=== PATIENT | female | born 1985 | race Caucasian/White ===

== ENCOUNTER 2016-08-03 16:21 | Emergency (ER) | payer BC ==
[2016-08-03] MEDS ORDERED: LIDOCAINE 1% 2 ML VIAL ONE (16:44)
[2016-08-03 16:54] VITALS: BP 116/75
--- NOTE | 2016-08-03 17:01 | ED Physician Documentation ---
PD HPI UPPER EXT INJURY - Stated complaint Stated Complaint: RT FINGER LAC - Chief complaint Chief Complaint: Laceration - History obtained from History obtained from: Patient - History of Present Illness Location: Right, Finger (5th finger) Type of injury: Laceration Where injury occurred: Home Timing - onset: Today Timing - duration: Minutes Timing - details: Abrupt onset, Still present Improved by: Rest, Immobilization Worsened by: Moving, Palpating Associated symptoms: No: Weakness, Numbness, Tingling, Swelling Similar symptoms before: Has not had sx before Recently seen: Not recently seen - Additonal information Additional information: 30 y/o female was moving items in the storage shed and cut her hand on a knife that was inside a box. Review of Systems Constitutional: denies: Fever Respiratory: denies: Cough GI: denies: Vomiting Skin: reports: Laceration (s). denies: Rash Musculoskeletal: denies: Neck pain, Back pain, Extremity pain Neurologic: denies: Generalized weakness, Focal weakness, Numbness PD PAST MEDICAL HISTORY - Present Medications Home Medications: Ambulatory Orders Medication Instructions Recorded Confirmed No Known Home Medications [No 08/03/16 08/03/16 Known Home Medications] - Allergies Allergies/Adverse Reactions: Allergies Allergy/AdvReac Type Severity Reaction Status Date / Time No Known Drug Allergies Allergy Verified 08/03/16 16:47 PD ED PE NORMAL - Vitals Vital signs reviewed: Yes (normal ) - General General: No acute distress, Well developed/nourished - HEENT HEENT: Atraumatic, PERRL - Respiratory Respiratory: No respiratory distress - Derm Derm: Normal color, Warm and dry, No rash - Extremities Extremities: No deformity, No edema, Other (There is a 1cm laceration to the palmar surface of the proximal phlange of the right 5th digit. ) - Neuro Neuro: No motor deficit, No sensory deficit - Psych Psych: Normal mood, Normal affect Results - Vitals Vitals: Vital Signs - 24 hr 08/03/16 16:47 Temperature 37.5 C Heart Rate 83 Respiratory 16 Rate Blood Pressure 116/75 O2 Saturation 100 Oxygen O2 Source Room air Procedures - Laceration (location) right 5th finger Length in cm: 1 Wound type: Linear, Clean Neurovascular status: Sensory intact, Motor intact, Vascular intact Anesthesia: Lidocaine 1% Wound Preparation: Hibiclens, Irrigated copiously NS, Wound explored, To the base Skin layer closure: Nylon, Interrupted, Size #-0 - enter number (5-0), Sutures - enter # (2) Other: Patient tolerated well, No complications, Neurovascular intact, Dressing applied, Other (will chect tetanus status with PMD) Complexity: Simple PD MEDICAL DECISION MAKING - ED course Complexity details: considered differential, d/w patient ED course: 30 y/o female with small lac to the 5th digit is sutured. Departure - Departure Disposition: 01 Home, Self Care Clinical Impression: Finger laceration Qualifiers: Encounter type: initial encounter Qualified Code(s): S61.219A - Laceration without foreign body of unspecified finger without damage to nail, initial encounter Instructions: ED Laceration Hand Follow-Up: Hannah Mckeon MD [Primary Care Provider] - Comments: sutures out in 7 days
== END 2016-08-03 17:36 | disposition home or self-care (01) ==
LOC: ED 16:21
DX: S61.216A Laceration without foreign body of right little finger without damage to nail, initial encounter (principal); W26.0XXA Contact with knife, initial encounter; Y93.89 Activity, other specified; Y92.009 Unspecified place in unspecified non-institutional (private) residence as the place of occurrence of the external cause
CPT/HCPCS: 12001; 99282; 99283

== ENCOUNTER 2016-08-26 09:42 | Outpatient (CLI) | payer BC ==
--- NOTE | 2016-08-27 12:41 | CT Report ---
SINUS CT: 08/26/2016 CLINICAL HISTORY: Chronic sinusitis. TECHNIQUE: Axial, coronal, and sagittal reconstruction images were done at 3 x 3 mm intervals. FINDINGS: Nasal cavity shows minimal deviation of the bony nasal septum toward the right. Mild swelling of the middle and inferior nasal turbinates is seen. Small antolin bullosa are noted within the superior aspect of the nasal turbinates. Minimal mucosal thickening is seen in the right ethmoidal sinus. Right maxillary sinus is hypoplastic and is almost completely opacified. This is compatible with a chronic sinusitis. Left maxillary sinus is normal. Frontal sinus appears normal. Sphenoid sinus demonstrates minimal mucosal thickening about its periphery. The right mastoid process is sclerotic. This is either developmental or related to prior mastoiditis. Sphenoid sinus shows minor mucosal thickening about its periphery. IMPRESSION: 1. RIGHT MAXILLARY SINUS IS SIGNIFICANTLY HYPOPLASTIC AND OPACIFIED. THIS OPACIFICATION MOST LIKELY IS THE RESULT OF ACUTE/CHRONIC SINUSITIS. 2. MINOR MUCOSAL THICKENING IS SEEN IN THE SPHENOID SINUS. 3. SCLEROTIC RIGHT MASTOID PROCESS IS NOTED. THIS IS EITHER A DEVELOPMENTAL VARIATION OR A FINDING RELATED TO A PRIOR MASTOIDITIS. In accordance with CT protocol optimization, one or more of the following dose reduction techniques were utilized for this exam: automated exposure control, adjustment of mA and/or KV based on patient size, or use of iterative reconstructive technique. JOB #: [id number] EXT JOB #: [id number] [place]
== END 2016-08-26 09:43 | disposition home or self-care (01) ==
LOC: DI 09:42
PROVIDERS: ATTEND Family Medicine
DX: J32.8 Other chronic sinusitis (principal)
CPT/HCPCS: 70486

== ENCOUNTER 2016-10-09 10:20 | Emergency (ER) | payer BC ==
[2016-10-09 10:51] LABS: BILIRUBIN,URINE NEGATIVE (NEGATIVE); PH,URINE 8.5 PH (5.0-7.5)
[2016-10-09 10:53] LABS: HCG UR QUAL NEGATIVE; UA w/ MICROSCOPIC CHARGE YES
[2016-10-09 11:46] LABS: WBC,URINE >25 /HPF (0-5)
[2016-10-09 11:47] LABS: UR CULTURE IF IND INDICATED
[2016-10-09] MEDS ORDERED: cefTRIAXone 1 GM VIAL IM STA (11:58)
[2016-10-09] MEDS ORDERED: PHENAZOPYRIDINE 100 MG TABLET PO STA (11:58)
[2016-10-09] MEDS ORDERED: PHENAZOPYRIDINE 100 MG TABLET PO ONE (12:12)
[2016-10-09] MEDS ORDERED: cefTRIAXone 1 GM VIAL ONE (12:12)
[2016-10-09] MEDS ORDERED: LIDOCAINE 1% 2 ML VIAL ONE (12:12)
[2016-10-09 13:00] VITALS: BP 109/74
--- NOTE | 2016-10-09 13:06 | ED Physician Documentation ---
History of Present Illness - Stated complaint Stated Complaint: ABD PX - Chief complaint Chief Complaint: Abd Pain - Additonal information Additional information: Patient is a 30-year-old female who presents with a complaint of lower urinary tract symptoms including frequency, hesitancy, dysuria she denies any gynecologic complaints and that does not really have any abdominal pain or flank pain. She denies any fever but felt warm earlier in the day. She does get have a history of frequent urinary tract infections. Review of systems: For pertinent positive and negatives in the review of systems please see the history of present illness, otherwise all other systems have been reviewed and are negative. Dragon disclaimer: Parts of this medical record were created using voice recognition technology. Because of the inherent limitations of this system, occasional same sounding word substitutions do occur and persist despite proofreading. Please read the document for context. 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 - Present Medications Home Medications: Ambulatory Orders Medication Instructions Recorded Confirmed Levetiracetam [Keppra] 500 mg PO BID 10/09/16 10/09/16 Phenazopyridine HCl [Pyridium] 200 mg PO TID #9 tablet 10/09/16 Sulfamethox/Trimeth 800/160 2 each PO BID #6 tablet 10/09/16 [Bactrim Ds 800/160] - Allergies Allergies/Adverse Reactions: Allergies Allergy/AdvReac Type Severity Reaction Status Date / Time No Known Drug Allergies Allergy Verified 10/09/16 10:29 - Social History Does the pt smoke?: No Smoking Status: Never smoker Does the pt drink ETOH?: Yes Does the pt have substance abuse?: No - Immunizations Immunizations are current?: Yes - POLST Patient has POLST: No PD ED PE NORMAL - Vitals Vital signs reviewed: Yes - General General: Alert and oriented X 3 - HEENT HEENT: Atraumatic - Neck Neck: Supple, no meningeal sign, No bony TTP - Cardiac Cardiac: RRR, No murmur - Respiratory Respiratory: No respiratory distress - Abdomen Abdomen: Normal bowel sounds, Non tender - Neuro Neuro: Alert and oriented X 3 - Psych Psych: Normal mood Results - Vitals Vitals: Vital Signs - 24 hr 10/09/16 10/09/16 10:22 12:59 Temperature 36.9 C 36.9 C Heart Rate 104 H 82 Respiratory 18 18 Rate Blood Pressure 125/59 L 109/74 O2 Saturation 99 100 Oxygen O2 Source Room air - Labs Labs: Laboratory Tests 10/09/16 10:30 Urine Color YELLOW Urine Clarity CLOUDY Urine pH 8.5 H Ur Specific [place]emp[place] 1.010 Urine Protein 100 H Urine Glucose (UA) NEGATIVE Urine Ketones NEGATIVE Urine Occult Blood LARGE H Urine Nitrite POSITIVE H Urine Bilirubin NEGATIVE Urine Urobilinogen 0.2 (NORMAL) Ur Leukocyte Esterase MODERATE H Urine RBC 11-25 H Urine WBC >25 H Urine WBC Clumps PRESENT Ur Squamous Epith Cells RARE Squamous Amorphous Sediment Few Urine Bacteria Few Ur Microscopic Review INDICATED Urine Culture Comments INDICATED Urine HCG, Qual NEGATIVE PD MEDICAL DECISION MAKING - ED course Complexity details: reviewed old records, re-evaluated patient, d/w patient ED course: Well-appearing young female for simple lower urinary tract infection. She is given a gram of Rocephin intramuscularly get her treatment started quickly and will be placed on Bactrim outpatient. Disposition: To home Clinical impression: 1. Acutelower urinary tract infection Departure - Departure Disposition: , Self Care Clinical Impression: Cystitis Condition: Good Instructions: ED UTI Cystitis Female Follow-Up: Andreia Maravilla ND [Primary Care Provider] - Prescriptions: Sulfamethox/Trimeth 800/160 [Bactrim Ds 800/160] 2 each PO BID #6 tablet Phenazopyridine HCl [Pyridium] 200 mg PO TID #9 tablet
== END 2016-10-09 12:45 | disposition home or self-care (01) ==
LOC: ED 10:20
DX: N30.90 Cystitis, unspecified without hematuria (principal)
CPT/HCPCS: 81001; 81025; 87086; 96372; 99283; A9270; 81003

== ENCOUNTER 2019-05-01 13:23 | Outpatient (CLI) | payer BC | END 2019-05-01 13:24 | disposition home or self-care (01) | LOC: COV 13:23 | PROVIDERS: ATTEND Family Medicine | DX: R05 Cough (principal); R50.9 Fever, unspecified | CPT/HCPCS: 81599 ==

== ENCOUNTER 2019-06-02 15:17 | Outpatient (CLI) | payer BC | END 2019-06-02 15:18 | disposition EMS.NT | LOC: EMS 15:17 | PROVIDERS: ATTEND Surgery | DX: R55 Syncope and collapse (principal); R41.0 Disorientation, unspecified ==

== ENCOUNTER 2019-08-02 09:16 | Outpatient (CLI) | payer BC | END 2019-08-02 09:17 | disposition home or self-care (01) | LOC: LAB 09:16 | PROVIDERS: ATTEND Family Medicine | DX: Z01.812 Encounter for preprocedural laboratory examination (principal); Z20.828 Contact with and (suspected) exposure to other viral communicable diseases | CPT/HCPCS: 81599 ==

== ENCOUNTER 2019-12-17 14:47 | Emergency (ER) | payer BC ==
--- NOTE | 2019-12-17 15:07 | ED Physician Documentation ---
PD HPI LOWER EXT INJURY - Stated complaint Stated Complaint: GLF/LT LEG INJURY - Chief complaint Chief Complaint: Trauma Ext - History obtained from History obtained from: Patient - Additional information Additional information: [employer] department complaining of left ankle pain after slipping on a wet floor while mopping and rolling her ankle. Patient states this happened couple of hours ago. She has noticed pain and swelling over the lateral aspect of the ankle and states it hurts to bear weight. Patient denies any other injuries. She has no prior injury to this ankle. No other complaints at this time. Review of Systems Ten Systems: 10 systems reviewed and negative Constitutional: reports: Reviewed and negative Eyes: reports: Reviewed and negative Ears: reports: Reviewed and negative Nose: reports: Reviewed and negative Throat: reports: Reviewed and negative Cardiac: reports: Reviewed and negative Respiratory: reports: Reviewed and negative GI: reports: Reviewed and negative : reports: Reviewed and negative Skin: reports: Reviewed and negative Musculoskeletal: reports: Joint pain, Joint swelling, Pain with weight bearing Neurologic: reports: Reviewed and negative Psychiatric: reports: Reviewed and negative Endocrine: reports: Reviewed and negative Immunocompromised: reports: Reviewed and negative PD PAST MEDICAL HISTORY - Past Medical History Past Medical History: Yes Cardiovascular: None Respiratory: None Endocrine/Autoimmune: None GI: None [employer]: None : None HEENT: None Psych: None Musculoskeletal: None Derm: None - Past Surgical History 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 - Present Medications Home Medications: Ambulatory Orders Medication Instructions Recorded Confirmed Levetiracetam [Keppra] 500 mg PO BID 10/09/16 10/09/16 Phenazopyridine HCl [Pyridium] 200 mg PO TID #9 tablet 10/09/16 Sulfamethox/Trimeth 800/160 2 each PO BID #6 tablet 10/09/16 [Bactrim Ds 800/160] - Allergies Allergies/Adverse Reactions: Allergies Allergy/AdvReac Type Severity Reaction Status Date / Time No Known Drug Allergies Allergy Verified 10/09/16 10:29 - Social History Does the pt smoke?: No Smoking Status: Never smoker Does the pt drink ETOH?: Yes Does the pt have substance abuse?: No - Immunizations Immunizations are current?: Yes - POLST Patient has POLST: No PD ED PE NORMAL - Vitals Vital signs reviewed: Yes - General General: Alert and oriented X 3, No acute distress - HEENT HEENT: Atraumatic, PERRL, EOMI, Moist mucous membranes - Neck Neck: Supple, no meningeal sign - Cardiac Cardiac: RRR, No murmur, Strong equal pulses - Respiratory Respiratory: No respiratory distress, Clear bilaterally - Abdomen Abdomen: Soft, Non tender, Non distended - Derm Derm: Normal color, Warm and dry, No rash - Extremities Extremities: No deformity, Other (Moderate tenderness and edema over the distal fibula.) - Neuro Neuro: Alert and oriented X 3 - Psych Psych: Normal mood, Normal affect Results - Vitals Vitals: Oxygen O2 Source Room air - Rads (name of study) L ankle XR Radiology: Final report received, EMP read indepedently, See rad report (STS, neg fx) Procedures - Splint (location) air cast Splint applied by: Tech Type of splint: Ankle airsplint Other: Patient tolerated well, No complications, Neurovascular intact, Crutches provided PD MEDICAL DECISION MAKING - ED course Complexity details: reviewed results, re-evaluated patient, considered differential, d/w patient ED course: D/w pt that her ankle was not fractured. We have discussed ice, elevation, WBAT, splint as long as needed, and the usual indications for return. Departure - Departure Disposition: 01 Home, Self Care Clinical Impression: Left ankle sprain Qualifiers: Encounter type: initial encounter Involved ligament of ankle: unspecified ligament Qualified Code(s): S93.402A - Sprain of unspecified ligament of left ankle, initial encounter Condition: Stable Instructions: ED Sprain Ankle Comments: Your x-rays does not show any signs of broken bones. You have most likely sprained your ankle. Please wear the splint until you are feeling better. You may bear weight as tolerated. Discharge Date/Time: 12/17/19 16:24
--- NOTE | 2019-12-17 15:30 | XRAY Report ---
PROCEDURE: Ankle 3 View LT INDICATIONS: Trauma TECHNIQUE: 3 views of the ankle were acquired. COMPARISON: None. FINDINGS: Bones: No fractures or dislocations. Ankle mortise is normally aligned. No suspicious bony lesions . Soft tissues: No tibiotalar joint effusion. Achilles tendon appears normal. Mild soft tissue swell ing overlying the lateral malleolus. IMPRESSION: Mild ankle soft tissue swelling without underlying fracture or dislocation. Reviewed by: Baldemar Norton MD on 12/17/2019 2:29 PM [facility] Approved by: Baldemar Norton MD on 12/17/2019 2:29 PM [facility] Station ID: [id number]
[2019-12-17 16:20] VITALS: BP 130/78
== END 2019-12-17 16:24 | disposition home or self-care (01) ==
LOC: ED 14:47
DX: S93.402A Sprain of unspecified ligament of left ankle, initial encounter (principal); W01.0XXA Fall on same level from slipping, tripping and stumbling without subsequent striking against object, initial encounter; Y93.E5 Activity, floor mopping and cleaning
CPT/HCPCS: 29515

== ENCOUNTER 2020-01-15 12:26 | Outpatient (CLI) | payer BC | END 2020-01-15 12:27 | disposition home or self-care (01) | LOC: LAB.N 12:26 | PROVIDERS: ATTEND Psychiatry & Neurology Neurology | DX: R77.8 Other specified abnormalities of plasma proteins (principal) | CPT/HCPCS: 36415; 83883 ==

== ENCOUNTER 2021-07-31 11:11 | Outpatient (CLI) | payer BC ==
--- NOTE | 2021-07-31 14:14 | XRAY Report ---
PROCEDURE: Finger(s) RT INDICATIONS: THUMB PAIN,RIGHT TECHNIQUE: AP hand, 2 views of the right first finger(s) acquired. COMPARISON: None FINDINGS: Bones: No fractures or dislocations. No suspicious bony lesions. Soft tissues: No suspicious soft tissue calcifications. IMPRESSION: No fracture. No osseous lesion. If symptoms and/or clinical concern for pathology persists, further a ssessment with repeat plain film radiographs (7-10 days) or advanced imaging (CT, MR, bone scan) shou ld be considered. Reviewed by: Rani Crowder MD, PhD on 07/31/2021 2:12 PM PDT Approved by: Rani Crowder MD, PhD on 07/31/2021 2:12 PM PDT Station ID: [id number]
== END 2021-07-31 11:12 | disposition home or self-care (01) ==
LOC: DI 11:11
PROVIDERS: ATTEND Family Medicine
DX: M79.644 Pain in right finger(s) (principal)

== ENCOUNTER 2021-10-10 11:48 | Outpatient (CLI) | payer BC ==
[2021-10-10 17:49] LABS: BASOPHILS # (AUTO) 0.1 10^3/uL (0.0-0.1); BASOPHILS % (AUTO) 1.7 %; EOSINOPHILS # (AUTO) 0.1 10^3/uL (0.0-0.7); EOSINOPHILS % (AUTO) 2.6 %; HCT - HEMATOCRIT 38.8 % (37.0-47.0); HGB - HEMOGLOBIN 12.6 g/dL (12.0-16.0); LYMPHOCYTES # (AUTO) 1.4 10^3/uL (1.5-3.5); LYMPHOCYTES % (AUTO) 32.7 %; MEAN CORPUSCULAR HEMOGLOBIN 28.6 pg (27.0-31.0); MEAN CORPUSCULAR HGB CONC 32.5 g/dL (32.0-36.0); MEAN CORPUSCULAR VOLUME 88.2 fL (81.0-99.0); MONOCYTES # (AUTO) 0.6 10^3/uL (0.0-1.0); NEUTROPHILS # (AUTO) 2.1 10^3/uL (1.5-6.6); NEUTROPHILS % (AUTO) 49.8 %; PLT - PLATELET COUNT 295 10^3/uL (130-450); RED CELL DISTRIBUTION WIDTH 12.6 % (12.0-15.0); WHITE BLOOD COUNT 4.2 x10^3/uL (4.8-10.8)
[2021-10-10 18:23] LABS: THYROID STIMULATING HORMONE 0.71 uIU/mL (0.34-5.60)
[2021-10-10 19:12] LABS: FOLATE > 49.60 ng/mL (5.90 - >24.8)
== END 2021-10-10 11:49 | disposition home or self-care (01) ==
LOC: LAB.N 11:48
PROVIDERS: ATTEND Psychiatry & Neurology Neurology
DX: R56.9 Unspecified convulsions (principal); R41.9 Unspecified symptoms and signs involving cognitive functions and awareness
CPT/HCPCS: 36415; 82607; 82746; 84443; 85025